=== PATIENT | male | born 1985 | race Caucasian/White ===

== ENCOUNTER 2020-02-12 13:13 | Emergency (ER) | payer BC ==
[2020-02-12 13:44] VITALS: BP 135/91; PULSE 78; TEMP 98.7; BMI 37.8
[2020-02-12] MEDS ORDERED: DOXYCYCLINE HYCLATE 100 MG CAPSULE PO ONE ×3 (14:18→15:55)
[2020-02-15 17:06] LABS: BABESIA MICROTI ANTIBODY IGG <1:10 (Neg:<1:10); BABESIA MICROTI ANTIBODY IGM <1:10 (Neg:<1:10)
[2020-02-16 16:08] LABS: E.chaff HME IgG Negative (Neg:<1:64)
== END 2020-02-12 16:23 | disposition home or self-care (01) ==
LOC: JERFT 13:13
DX: U07.1 COVID-19 (principal); S10.96XA Insect bite of unspecified part of neck, initial encounter
CPT/HCPCS: 36415; 86618; 86666; 86753; 99283-25; C9803; U0003